=== PATIENT | female | born 2005 | race Caucasian/White ===

== ENCOUNTER 2023-11-22 12:00 | Observation (INO) | payer OTHER ==
[2023-11-22 13:55] LABS: BASO % 0.5 % (0-2.0); EOS % 0.6 % (0-4.5); HEMATOCRIT 43.5 % (32.4-45.2); HEMOGLOBIN 15.3 GM/dL (10.7-15.3); LYMPH % 35.6 % (8-40); MCH 30.1 pg (25.7-33.7); MCHC 35.2 g/dl (32.0-36.0); MEAN CELL VOLUME 85.5 fl (80-96); MEAN PLT VOLUME 9.4 fl (7.5-11.1); MONO % 8.5 % (3.8-10.2); NEUT % 54.8 % (42.8-82.8); PLATELET COUNT 211 10^3/uL (134-434); RBC 5.09 M/mm3 (3.60-5.2); RDW 12.9 % (11.6-15.6); WHITE BLOOD COUNT 5.1 K/mm3 (4.0-10.0)
[2023-11-22] MEDS: SODIUM CHLORIDE 0.9% 500 ML INFUS.BAG IV ONE (14:00)
[2023-11-22 14:01] LABS: INR 1.31 (0.83-1.09); PROTHROMBIN TIME (PATIENT) 15.2 SEC (9.7-13.0)
[2023-11-22 14:03] LABS: ACTIVATED PTT 28.5 SECONDS (25.2-36.5)
[2023-11-22 14:19] LABS: CHLORIDE 101 mmol/L (98-107); POTASSIUM 5.4 mmol/L (3.5-5.1); SODIUM 133 mmol/L (136-145)
[2023-11-22 14:21] LABS: ANION GAP 11 mmol/L (4-13); CALCIUM 9.5 mg/dL (8.5-10.1); CO2 21 mmol/L (21-32); GLUCOSE,RANDOM 67 mg/dL (74-106)
[2023-11-22 14:22] LABS: ALBUMIN 4.5 g/dl (3.4-5.0); BLOOD UREA NITROGEN 7.4 mg/dL (7-18); MAGNESIUM 2.1 mg/dL (1.8-2.4)
[2023-11-22 14:24] LABS: SGOT/AST 79 U/L (15-37)
[2023-11-22 14:25] LABS: CREATININE 0.8 mg/dL (0.55-1.3)
[2023-11-22 14:26] LABS: BILIRUBIN,TOTAL 0.6 mg/dL (0.2-1); TOT PROT 8.7 g/dl (6.4-8.2)
[2023-11-22 14:27] LABS: ALK PHOS 68 U/L (45-117)
[2023-11-22 14:45] LABS: SGPT/ALT 31 U/L (13-61)
[2023-11-22] MEDS ORDERED: ONDANSETRON 4 MG/2 ML VIAL ONE (14:45)
[2023-11-22] MEDS: ONDANSETRON 4 MG/2 ML VIAL IVPUSH ONE (14:50)
[2023-11-22] MEDS ORDERED: ACETYLCYSTEINE 20% 200MG/ML 30ML VIAL *FOR INJECTION USE ONLY IVPB ONE ×2 (15:30→15:41)
[2023-11-22] MEDS: ACETYLCYSTEINE INJECTION 20% 9,900 MG in DEXTROSE 5%-WATER - 250 ML IVPB ONE (15:50)
[2023-11-22 17:21] LABS: EPI CELLS 19 /uL (0-25.1); HYALINE CASTS 1 /uL (0-3.1); URINE APPEARANCE CLEAR; URINE BACTERIA 435 /uL (0-1359); URINE BILIRUBIN NEGATIVE (NEGATIVE); URINE COLOR YELLOW; URINE GLUCOSE (UA) NEGATIVE (NEGATIVE); URINE KETONE 4+ (NEGATIVE); URINE LEUK ESTERASE NEGATIVE (NEGATIVE); URINE NITRITE NEGATIVE (NEGATIVE); URINE PROTEIN TRACE (NEGATIVE); URINE RBC 22 /uL (0-23.9); URINE UROBILINOGEN 0.2 mg/dL (0.2-1.0); URINE WBC 22 /uL (0-25.8)
[2023-11-22 17:27] LABS: COCAINE, UR NEGATIVE (NEGATIVE); METHADONE, UR NEGATIVE (NEGATIVE); URINE BARBITURATES NEGATIVE (NEGATIVE)
[2023-11-22 17:28] LABS: PHENCYCLIDINE,URINE NEGATIVE (NEGATIVE); URINE BENZODIAZEPINES NEGATIVE (NEGATIVE)
[2023-11-22 17:29] LABS: OPIATES, URI NEGATIVE (NEGATIVE)
[2023-11-22 17:57] LABS: URINE AMPHETAMINES NEGATIVE (NEGATIVE)
[2023-11-22] MEDS ORDERED: IBUPROFEN 400 MG TABLET (FP) PO ONE (18:42)
[2023-11-22] MEDS: ACETYLCYSTEINE INJECTION 20% 3,300 MG in DEXTROSE 5%-WATER - 500 ML IVPB ONE (18:46)
[2023-11-22] MEDS: IBUPROFEN 400 MG TABLET (FP) PO ONE (18:46)
[2023-11-22] MEDS ORDERED: DEXTROSE 5% IVPB ONE (20:30)
[2023-11-22] MEDS ORDERED: WATER IVPB ONE (20:30)
[2023-11-22] MEDS ORDERED: ACETYLCYSTEINE IVPB ONE (20:30)
[2023-11-22] MEDS ORDERED: MELATONIN 5 MG TABLETS PO PRN (20:37)
[2023-11-22 21:00] LABS: ALBUMIN 3.6 g/dl (3.4-5.0)
[2023-11-22 21:03] LABS: BILIRUBIN,DIRECT 0.1 mg/dL (0.0-0.2)
[2023-11-22 21:04] LABS: SGOT/AST 12 U/L (15-37); SGPT/ALT 27 U/L (13-61)
[2023-11-22 21:05] LABS: BILIRUBIN,TOTAL 0.6 mg/dL (0.2-1)
[2023-11-22 21:06] LABS: ALK PHOS 55 U/L (45-117)
[2023-11-22 21:28] LABS: INR 1.46 (0.83-1.09); PROTHROMBIN TIME (PATIENT) 16.9 SEC (9.7-13.0)
[2023-11-22 21:36] LABS: POTASSIUM 2.7 mmol/L (3.5-5.1); TOT PROT 6.6 g/dl (6.4-8.2)
[2023-11-22 23:05] VITALS: BMI 24.0
[2023-11-22] MEDS: POTASSIUM CHLORIDE ORAL LIQUID 20 MEQ/15 ML PO ONE (23:15)
[2023-11-22] MEDS: KCL 10 MEQ IVPB 10 MEQ/100 ML INFUS.BAG IVPB SCH (23:16)
[2023-11-23 08:34] LABS: HEMATOCRIT 41.2 % (32.4-45.2); HEMOGLOBIN 14.2 GM/dL (10.7-15.3); MCH 29.6 pg (25.7-33.7); MCHC 34.5 g/dl (32.0-36.0); MEAN CELL VOLUME 85.7 fl (80-96); MEAN PLT VOLUME 9.6 fl (7.5-11.1); PLATELET COUNT 189 10^3/uL (134-434); RBC 4.81 M/mm3 (3.60-5.2); RDW 12.5 % (11.6-15.6); WHITE BLOOD COUNT 5.1 K/mm3 (4.0-10.0)
[2023-11-23 08:40] LABS: CHLORIDE 106 mmol/L (98-107); POTASSIUM 3.2 mmol/L (3.5-5.1); SODIUM 140 mmol/L (136-145)
[2023-11-23 08:41] LABS: CALCIUM 9.1 mg/dL (8.5-10.1)
[2023-11-23 08:42] LABS: ALBUMIN 3.7 g/dl (3.4-5.0); ANION GAP 11 mmol/L (4-13); CO2 23 mmol/L (21-32); GLUCOSE,RANDOM 67 mg/dL (74-106); MAGNESIUM 2.1 mg/dL (1.8-2.4)
[2023-11-23 08:45] LABS: CREATININE 0.5 mg/dL (0.55-1.3); PHOSPHOROUS 2.7 mg/dL (2.5-4.9); SGOT/AST 14 U/L (15-37); SGPT/ALT 18 U/L (13-61)
[2023-11-23 08:47] LABS: BILIRUBIN,TOTAL 0.6 mg/dL (0.2-1); TOT PROT 6.8 g/dl (6.4-8.2)
[2023-11-23 08:48] LABS: ALK PHOS 55 U/L (45-117)
[2023-11-23 09:05] LABS: BLOOD UREA NITROGEN 2.4 mg/dL (7-18)
[2023-11-23] MEDS: POTASSIUM CHLORIDE ORAL LIQUID 20 MEQ/15 ML PO ONE (12:06)
[2023-11-23] MEDS: POTASSIUM CHLORIDE TABS 20 MEQ TABLET.ER (FP) PO SCH (13:02)
[2023-11-23 14:53] VITALS: BP 105/65; PULSE 76; RESP 18; TEMP 98.1
== END 2023-11-23 15:10 | disposition home or self-care (01) ==
LOC: JER 12:00 → JERBED 15:17 → J6S 21:52
PROVIDERS: ADMIT Internal Medicine; ATTEND Internal Medicine
PROC: 3E033GC Introduction of Other Therapeutic Substance into Peripheral Vein, Percutaneous Approach (ICD-10-PCS; principal; 2023-11-22)
PROC: 3E0337Z Introduction of Electrolytic and Water Balance Substance into Peripheral Vein, Percutaneous Approach (ICD-10-PCS; 2023-11-22)
DX: T39.1X1A Poisoning by 4-Aminophenol derivatives, accidental (unintentional), initial encounter (principal); L25.8 Unspecified contact dermatitis due to other agents; X58.XXXA Exposure to other specified factors, initial encounter; Y92.89 Other specified places as the place of occurrence of the external cause; G43.909 Migraine, unspecified, not intractable, without status migrainosus
CPT/HCPCS: 0241U-QW; 36415; 76705-TC; 80048; 80053; 80076; 80307; 81003; 82550; 82553; 82962; 83690; 83735; 84100; 84132; 84484; 84703; 85025; 85027; 85610; 85730; 93005; 93010; 99285-25; G0378

== ENCOUNTER 2023-11-27 13:07 | Inpatient (IN) | payer OTHER ==
[2023-11-27] MEDS ORDERED: SODIUM CHLORIDE 0.9% 500 ML INFUS.BAG IV ONE (14:06)
[2023-11-27] MEDS ORDERED: ONDANSETRON 4 MG/2 ML VIAL ONE (14:18)
[2023-11-27] MEDS ORDERED: FAMOTIDINE 20 MG/50 ML IVPB 20 MG/50 ML MG IVPB ONE (14:18)
[2023-11-27] MEDS: DEXTROSE 5%-NORMAL SALINE 1,000 ML IV ONE (14:38)
[2023-11-27] MEDS: FAMOTIDINE 20 MG/50 ML IVPB 20 MG/50 ML MG IVPB ONE (14:38)
[2023-11-27] MEDS: ONDANSETRON 4 MG/2 ML VIAL IVPUSH ONE (14:38)
[2023-11-27 14:45] LABS: BASO % 0.6 % (0-2.0); EOS % 0.9 % (0-4.5); HEMATOCRIT 43.9 % (32.4-45.2); HEMOGLOBIN 15.3 GM/dL (10.7-15.3); MCH 29.7 pg (25.7-33.7); MCHC 34.9 g/dl (32.0-36.0); MEAN CELL VOLUME 85.3 fl (80-96); MEAN PLT VOLUME 9.2 fl (7.5-11.1); MONO % 10.5 % (3.8-10.2); PLATELET COUNT 218 10^3/uL (134-434); RBC 5.15 M/mm3 (3.60-5.2); RDW 12.5 % (11.6-15.6); WHITE BLOOD COUNT 4.5 K/mm3 (4.0-10.0)
[2023-11-27 14:50] LABS: INR 1.38 (0.83-1.09)
[2023-11-27 14:53] LABS: ACTIVATED PTT 28.2 SECONDS (25.2-36.5)
[2023-11-27 15:16] LABS: CHLORIDE 106 mmol/L (98-107); POTASSIUM 3.2 mmol/L (3.5-5.1); SODIUM 139 mmol/L (136-145)
[2023-11-27 15:18] LABS: CALCIUM 9.4 mg/dL (8.5-10.1)
[2023-11-27 15:19] LABS: ALBUMIN 4.2 g/dl (3.4-5.0); ANION GAP 14 mmol/L (4-13); BLOOD UREA NITROGEN 7.7 mg/dL (7-18); CO2 19 mmol/L (21-32); GLUCOSE,RANDOM 70 mg/dL (74-106)
[2023-11-27 15:22] LABS: CREATININE 0.6 mg/dL (0.55-1.3); SGOT/AST 15 U/L (15-37); SGPT/ALT 21 U/L (13-61)
[2023-11-27 15:23] LABS: TOT PROT 7.3 g/dl (6.4-8.2)
[2023-11-27 15:25] LABS: ALK PHOS 58 U/L (45-117)
[2023-11-27] MEDS ORDERED: POTASSIUM CHLORIDE ORAL LIQUID 20 MEQ/15 ML ONE (15:38)
[2023-11-27] MEDS: POTASSIUM CHLORIDE ORAL LIQUID 20 MEQ/15 ML PO ONE (16:15)
[2023-11-27 16:47] LABS: MAGNESIUM 1.7 mg/dL (1.8-2.4)
[2023-11-27] MEDS ORDERED: POTASSIUM CHLORIDE TABS 20 MEQ TABLET.ER (FP) PO ONE (16:59)
[2023-11-27 17:37] LABS: URINE APPEARANCE CLEAR; URINE BILIRUBIN NEGATIVE (NEGATIVE); URINE COLOR YELLOW; URINE GLUCOSE (UA) NEGATIVE (NEGATIVE); URINE KETONE 4+ (NEGATIVE); URINE LEUK ESTERASE NEGATIVE (NEGATIVE); URINE NITRITE NEGATIVE (NEGATIVE); URINE PROTEIN NEGATIVE (NEGATIVE)
[2023-11-27] MEDS: POTASSIUM CHLORIDE TABS 20 MEQ TABLET.ER (FP) PO ONE (17:57)
[2023-11-27] MEDS ORDERED: ACETAMINOPHEN INJECTION 100 ML IVPB ONE (18:20)
[2023-11-27] MEDS: ACETAMINOPHEN 1000 MG/100 ML BAG IVPB ONE (18:27)
[2023-11-27] MEDS: DEXTROSE 5%-LACTATED RINGERS 1,000 ML IV SCH (18:28)
[2023-11-27 18:44] LABS: URINE BARBITURATES NEGATIVE (NEGATIVE); URINE BENZODIAZEPINES NEGATIVE (NEGATIVE)
[2023-11-27 18:45] LABS: METHADONE, UR NEGATIVE (NEGATIVE); OPIATES, URI NEGATIVE (NEGATIVE); PHENCYCLIDINE,URINE NEGATIVE (NEGATIVE)
[2023-11-27 18:50] LABS: COCAINE, UR NEGATIVE (NEGATIVE); URINE AMPHETAMINES NEGATIVE (NEGATIVE)
[2023-11-27] MEDS ORDERED: SUCRALFATE 1 GM TABLET (FP) ONE (20:47)
[2023-11-27] MEDS ORDERED: MAGNESIUM SULFATE IN WATER 2 GM/50 ML IVPB IVPB ONE (20:47)
[2023-11-27] MEDS ORDERED: METOCLOPRAMIDE HCL INJECTION 10 MG/2 ML VIAL ONE (20:47)
[2023-11-27] MEDS: METOCLOPRAMIDE HCL INJECTION 10 MG/2 ML VIAL IVPUSH ONE (20:58)
[2023-11-27] MEDS: MAGNESIUM SULFATE IN WATER 2 GM/50 ML IVPB IVPB ONE (20:58)
[2023-11-27] MEDS: SUCRALFATE 1 GM TABLET (FP) PO ONE (20:59)
[2023-11-27] MEDS ORDERED: LACTULOSE 20 GM/30 ML UDC (FOR ORAL USE ONLY) ONE (22:15)
[2023-11-27] MEDS: LACTULOSE 20 GM/30 ML UDC (FOR ORAL USE ONLY) PO ONE (22:17)
[2023-11-27] MEDS ORDERED: SODIUM CHLORIDE 1,000 ML IV SCH (22:30)
[2023-11-27] MEDS ORDERED: MAGNESIUM HYDROX 2400MG/30ML ORAL SUSPENSION 30 ML CUP PO PRN (22:51)
[2023-11-28] MEDS: FOLIC ACID INJECTION - 1 MG, THIAMINE HCL 100 MG, MULTIVIT INJECTION ADULT 10 ML in SOD... IVPB ONE (03:10)
[2023-11-28 05:31] VITALS: BMI 26.0
[2023-11-28 09:03] LABS: HEMATOCRIT 38.5 % (32.4-45.2); HEMOGLOBIN 13.7 GM/dL (10.7-15.3); MCH 30.2 pg (25.7-33.7); MCHC 35.5 g/dl (32.0-36.0); MEAN CELL VOLUME 84.9 fl (80-96); MEAN PLT VOLUME 9.5 fl (7.5-11.1); PLATELET COUNT 200 10^3/uL (134-434); RBC 4.53 M/mm3 (3.60-5.2); RDW 12.5 % (11.6-15.6); WHITE BLOOD COUNT 3.6 K/mm3 (4.0-10.0)
[2023-11-28 09:22] LABS: POTASSIUM 3.4 mmol/L (3.5-5.1)
[2023-11-28 09:26] LABS: BLOOD UREA NITROGEN 3.9 mg/dL (7-18); CALCIUM 8.2 mg/dL (8.5-10.1); MAGNESIUM 1.9 mg/dL (1.8-2.4)
[2023-11-28 09:29] LABS: CREATININE 0.4 mg/dL (0.55-1.3)
[2023-11-28] MEDS: POTASSIUM CHLORIDE ORAL LIQUID 20 MEQ/15 ML PO ONE (13:47)
[2023-11-28] MEDS: SODIUM CHLORIDE 1,000 ML IV SCH ×2 (13:47→19:08)
[2023-11-28] MEDS: FAMOTIDINE 20 MG/50 ML IVPB 20 MG/50 ML MG IVPB SCH (13:47)
[2023-11-28] MEDS: POTASSIUM CHLORIDE TABS 20 MEQ TABLET.ER (FP) PO SCH (17:07)
[2023-11-28] MEDS: SENNOSIDES/DOCUSATE COMBO (SENNA PLUS) TABLET (UD) PO SCH (22:13)
[2023-11-29 09:33] LABS: BASO % 0.3 % (0-2.0); EOS % 1.9 % (0-4.5); HEMATOCRIT 38.5 % (32.4-45.2); HEMOGLOBIN 13.8 GM/dL (10.7-15.3); LYMPH % 27.2 % (8-40); MCH 30.6 pg (25.7-33.7); MCHC 35.9 g/dl (32.0-36.0); MEAN CELL VOLUME 85.1 fl (80-96); MEAN PLT VOLUME 9.5 fl (7.5-11.1); MONO % 8.4 % (3.8-10.2); NEUT % 62.2 % (42.8-82.8); PLATELET COUNT 177 10^3/uL (134-434); RBC 4.53 M/mm3 (3.60-5.2); RDW 12.4 % (11.6-15.6); WHITE BLOOD COUNT 5.2 K/mm3 (4.0-10.0)
[2023-11-29 09:51] LABS: CHLORIDE 109 mmol/L (98-107); POTASSIUM 3.2 mmol/L (3.5-5.1); SODIUM 143 mmol/L (136-145)
[2023-11-29 09:55] LABS: GLUCOSE,RANDOM 67 mg/dL (74-106)
[2023-11-29 09:56] LABS: ANION GAP 13 mmol/L (4-13); CO2 22 mmol/L (21-32); MAGNESIUM 1.6 mg/dL (1.8-2.4)
[2023-11-29 09:58] LABS: CREATININE 0.3 mg/dL (0.55-1.3)
[2023-11-29 09:59] LABS: BLOOD UREA NITROGEN 1.2 mg/dL (7-18)
[2023-11-29] MEDS: IBUPROFEN 800 MG/8 ML IJ IVPB ONE (13:05)
[2023-11-29] MEDS: MAGNESIUM OXIDE 400 MG TABLET (FP) PO ONE (13:06)
[2023-11-29] MEDS: POTASSIUM CHLORIDE TABS 20 MEQ TABLET.ER (FP) PO ONE (13:06)
[2023-11-29] MEDS: AMINO ACIDS/PROTEIN HYDROLYS 30 ML LIQUID.PKT PO SCH (17:38)
[2023-11-30 06:24] VITALS: RESP 18
[2023-11-30 08:02] LABS: POTASSIUM 3.5 mmol/L (3.5-5.1)
[2023-11-30 08:16] LABS: BLOOD UREA NITROGEN 6.1 mg/dL (7-18)
[2023-11-30 08:17] LABS: CREATININE 0.4 mg/dL (0.55-1.3)
[2023-11-30 08:19] LABS: CALCIUM 8.7 mg/dL (8.5-10.1)
[2023-11-30 08:25] LABS: PHOSPHOROUS 3.5 mg/dL (2.5-4.9)
[2023-11-30 10:59] VITALS: BP 106/78; PULSE 85; TEMP 98.4
== END 2023-11-30 00:05 | disposition home health service (06) | DRG 392 ==
LOC: JER 13:07 → JERBED 20:09 → OBSVTOIN 22:25 → J8W 23:30
PROVIDERS: ADMIT Internal Medicine; ATTEND Nurse Practitioner Family
DX: K52.9 Noninfective gastroenteritis and colitis, unspecified (principal); E44.0 Moderate protein-calorie malnutrition; I95.1 Orthostatic hypotension; E87.6 Hypokalemia; E83.42 Hypomagnesemia; R10.9 Unspecified abdominal pain
CPT/HCPCS: 0241U-QW; 36415; 70450-TC; 74177-TC; 80048; 80053; 80307; 81003; 82533; 83690; 83735; 84100; 84110; 84443; 84703; 85025; 85027; 85610; 85730; 87086; 93005; 93010; 97116-GP; 97161-GP; 99285-25; G0378; J0131; Q9967